=== PATIENT | female | born 1940 | race Caucasian/White ===

== ENCOUNTER → 2016-05-15 | Outpatient (CLI) | payer OTHER ==
[~2016-05-15] VITALS: Ht 160 cm; Wt 56.0 kg
[~2016-05-15] MED LIST: ASPIR 8181 M1 PO; BENADRYL25 MG PO; CALCIUM 600 +1 EAC4 PO; FLEXERIL5 MG PO; GLUMETZA500 M1 PO; GRALISE300 MG PO; LEXAPRO10 MG PO; LISINOPRIL10 MG PO; METFORMIN HCL500 MG PO; NORVASC5 MG PO; PREDNISONE20 MG PO; SIMVASTATIN20 MG PO; TRAMADOL HCL50 MG PO; TYLENOL WITH C1 EACH PO; VITAMIN D31000 UNI2 PO; ZOCOR10 MG PO
[2016-05-15 12:54] VITALS: BP 147/65
== END | disposition home or self-care (01) ==
LOC: IVINF 12:42
DX: M81.0 Age-related osteoporosis without current pathological fracture (principal)
CPT/HCPCS: 96365; J3489

== ENCOUNTER → 2017-06-05 | Outpatient (CLI) | payer OTHER ==
[~2017-06-05] VITALS: Ht 160 cm; Wt 56.3 kg
[2017-06-05 13:32] VITALS: BP 135/71
== END | disposition home or self-care (01) ==
LOC: IVINF 13:25
DX: M81.0 Age-related osteoporosis without current pathological fracture (principal)
CPT/HCPCS: 96365; J3489